=== PATIENT | female | born 1980 | race Caucasian/White ===

== ENCOUNTER → 2016-12-08 | Day surgery (SDC) | payer OTHER ==
[~2016-12-08] MED LIST: ACETAMINOPHEN 1000 MG/100 ML VIAL IV ONE; ACETAMINOPHEN/HYDROcodone 325 MG/5 MG TAB ONE; BACITRACIN IM FOR SOLN 50,000 UNIT VIAL ONE; BUPIVACAINE/EPINEPHRINE 0.25% PF 10 ML VIAL ONE; GENTAMICIN SULFATE 80 MG/2 ML VIAL ONE; LACTATED RINGER'S 1000 ML INJ 1,000 ML ONE; LIDOCAINE 1%/EPINEPHrine 1:100,000 SOLN 20 ML VIAL ONE; MEPERIDINE HCL 25 MG/ML VIAL ONE; MIDAZOLAM HCL 2 MG/2 ML VIAL ONE; ONDANSETRON HCL 4 MG/2 ML VIAL IV PUSH ONE; PROPOFOL 200 MG/20 ML AMP IV ONE; SODIUM CHLORIDE 0.9% 20 ML VIAL ONE; ceFAZolin INJ 1,000 MG VIAL ONE
--- NOTE | 2016-12-08 09:29 | TN ---
cc: MONSTER DURAN M.D. DATE OF SURGERY: 12/08/2016 PREOPERATIVE DIAGNOSIS Capsular contraction of the left breast status post augmentation mammoplasty, wishes removal of implants. POSTOPERATIVE DIAGNOSIS Capsular contraction of the left breast status post augmentation mammoplasty, wishes removal of implants. PROCEDURE Bilateral capsulectomies and removal of bilateral implants. SURGEON Monster Duran ANESTHESIA LMA general. ESTIMATED BLOOD LOSS Minimal. COMPLICATIONS None. DRAINS Two 7 mm LIZZY, one per side. INTRAOPERATIVE FINDINGS Significant bleeding left breast, all contained within the capsule of the left breast. DETAILS OF PROCEDURE She was properly consented, marked and properly anesthetized. The skin was sterilized with Betadine solution and sterile draping applied. Local anesthetic was infiltrated, a total of 60 cc of 1% lidocaine with epinephrine mixed with 0.25% Marcaine in a 2:1 ratio. Isolation of the nipple-areolar complex was done with Tegaderm. Through a previous inframammary incision the capsule was encountered and a full capsulectomy was carried out. The devices were placed in the retroperitoneal plane and the capsulectomy was done in its full totality. After removal of the implant with the capsule irrigation with antibiotic solution was carried out. Lateral and inferior capsulorrhaphies were done with 2-0 Monocryl suture to reset the breast tissue as well as resetting of the inferomedial border of the pectoris major muscle. A 7 mm LIZZY drain was brought out and secured in place through a separate stab wound. The wound was closed in multiple 2-0 Monocryl suture layers in the breast parenchyma, Maribell's fascia, dermis and subcu. The contralateral side was approached exactly in the same manner. The patient had a bleeding implant although it was contained. Thorough irrigation was carried out and the rest of the procedure proceeded as previously described. No other pathology was encountered intraoperatively and the patient tolerated the procedure well. For dressings we utilized 4x4s, a snug brassiere after Steri-Strips and Mastisol. Overall the patient tolerated the procedure well. She was awakened and extubated in the operating room, transferred back to the post-anesthesia care unit in stable condition. No complications were appreciated. The patient tolerated the procedure fairly well. MD TIA Saunders/LUANA /9:03 AM /9:11 AM
== END | disposition home or self-care (01) ==
LOC: ESDC 06:14
PROVIDERS: ATTEND Plastic Surgery
DX: Z41.1 Encounter for cosmetic surgery (principal)
CPT/HCPCS: 00400; 19328; 88305; J0131; J0690; J1580; J2175; J2250; J2405; J3010; J7120